=== PATIENT | male | born 1980 | race Caucasian/White ===

== ENCOUNTER 2019-09-22 14:48 | Emergency (ER) | payer MEDICAID ==
[~2019-09-22] VITALS: Ht 172.7 cm; Wt 72.6 kg
[2019-09-22 15:31] LABS: ABSOLUTE BASOPHILS 0.1 thou/uL (0.0-0.2); ABSOLUTE EOSINOPHILS 0.2 thou/uL (0.0-0.7); ABSOLUTE LYMPHOCYTES 2.2 thou/uL (0.8-5.3); ABSOLUTE MONOCYTES 0.4 thou/uL (0.0-1.2); ABSOLUTE NEUTROPHILS 3.8 thou/uL (1.6-8.1); BASOPHILS 1.9 %; EOSINOPHILS 3.4 %; HEMATOCRIT 38.4 % (42.0-52.0); HEMOGLOBIN 13.1 gm/dL (14.0-18.0); MCH 29.5 pg (26.0-34.0); MCV 86.7 fL (80.0-100.0); MONOCYTES 6.2 %; MPV 7.8 fl. (7.2-11.1); NUCLEATED RBCS 0 /100WBC; PLATELET COUNT* 300 thou/uL (150-400); POLYS 55.5 %; RBC 4.42 mil/uL (4.50-6.00); RDW-CV 16.4 % (10.5-14.5); WBC 6.8 thou/uL (4.0-11.0)
[2019-09-22 15:38] LABS: CALCIUM 8.3 mg/dL (8.5-10.1); CREATININE 0.8 mg/dL (0.6-1.3); POTASSIUM 3.6 mmol/L (3.5-5.1)
[2019-09-22 15:43] LABS: ALBUMIN 3.8 g/dL (3.4-5.0); TOTAL BILIRUBIN 0.2 mg/dL (<0.1-1.0); TOTAL PROTEIN 7.5 g/dL (6.4-8.2)
[2019-09-22 15:49] LABS: ALCOHOL 241 mg/dL (<10); SALICYLATE < 2.8 mg/dL (2.8-20.0)
[2019-09-22 15:50] LABS: ACETAMINOPHEN < 2 ug/mL (10-30)
[2019-09-22 17:47] VITALS: BP 129/102
== END 2019-09-22 17:48 | disposition home or self-care (01) ==
LOC: M.ERS 14:48
PROVIDERS: Family Medicine
DX: F10.129 Alcohol abuse with intoxication, unspecified (principal); Y90.8 Blood alcohol level of 240 mg/100 ml or more